=== PATIENT | male | born 1955 | race Caucasian/White ===

== ENCOUNTER 2020-10-08 23:58 | Inpatient (IN) | payer MEDICARE, BC ==
[2020-10-09 02:15] LABS: #Lymphocytes 1.4 thou/uL (1.20-3.40); #Monocytes 1.6 thou/uL (0.11-0.59); #Neutrophils 14.9 thou/uL (1.40-6.50); %Basophils 0.2 % (0.0-1.0); %Eosinophils 0.2 % (0.0-10.0); %Monocytes 8.7 % (0.0-10.0); %Neutrophils 82.9 % (42.0-75.0); Hemoglobin 14.9 g/dL (14.0-18.0); Mean Corpuscular HGB CONC 34.6 g/dL (32.0-36.0); Mean Corpuscular Hemoglobin 29.9 pg (27.0-31.0); Mean Corpuscular Volume 86.5 fL (78.0-98.0); Mean Platelet Volume 7.4 fL (7.4-10.4); Platelet Count 206 thou/uL (130-400); RBC Distribution Width 12.3 % (11.5-14.5); Red Blood Cell (RBC) Count 4.96 mill/uL (4.70-6.10); White Blood Cell (WBC) Count 17.9 thou/uL (4.8-10.8)
[2020-10-09 02:22] LABS: PTT 27.9 sec (22.9-36.1)
[2020-10-09 02:26] LABS: INR-International Normal Ratio 1.1; Prothrombin Time 14.3 sec (12.0-14.7)
[2020-10-09 02:36] LABS: ALT (SGPT) 38 U/L (8-55); AST (SGOT) 28 U/L (5-34); Albumin 4.3 g/dL (3.4-4.8); Alkaline Phosphatase 58 U/L (40-110); Anion Gap 17 mmol/L (10-20); BUN (Urea Nitrogen) 26 mg/dL (8.4-25.7); Bilirubin, Total 1.1 mg/dL (0.2-1.2); Calc. Creatinine Clearance 0 mL/min (70-130); Calcium 9.5 mg/dL (7.8-10.44); Carbon Dioxide 27 mmol/L (23-31); Chloride 102 mmol/L (98-107); Globulin 2.5 g/dL (2.4-3.5); Glucose 149 mg/dL (80-115); Potassium 3.6 mmol/L (3.5-5.1); Protein, Total 6.8 g/dL (5.8-8.1); Sodium 142 mmol/L (136-145)
[2020-10-09] MEDS ORDERED: Lorazepam 2 MG/ML VIAL ONE (03:58)
[2020-10-09] MEDS ORDERED: Dextrose 50% Abboject 50 ML SYRINGE SLOW IVP PRN (04:19)
[2020-10-09] MEDS ORDERED: Dextrose 5% in Water 1,000 ML IV PRN (04:19)
[2020-10-09] MEDS ORDERED: hydrALAZINE 20 MG/ML VIAL SLOW IVP PRN (04:19)
[2020-10-09] MEDS ORDERED: Ibuprofen 600 MG TAB PO PRN (04:24)
[2020-10-09] MEDS ORDERED: Morphine 4 MG/ML VIAL SLOW IVP ONE (05:00)
[2020-10-09] MEDS ORDERED: Morphine 4 MG/ML VIAL ONE (06:17)
[2020-10-09 06:29] LABS: #Lymphocytes 1.3 thou/uL (1.20-3.40); #Monocytes 1.8 thou/uL (0.11-0.59); #Neutrophils 14.9 thou/uL (1.40-6.50); %Basophils 0.1 % (0.0-1.0); %Eosinophils 0.2 % (0.0-10.0); %Monocytes 10.1 % (0.0-10.0); %Neutrophils 82.7 % (42.0-75.0); Hemoglobin 14.4 g/dL (14.0-18.0); Mean Corpuscular HGB CONC 33.8 g/dL (32.0-36.0); Mean Corpuscular Hemoglobin 29.1 pg (27.0-31.0); Mean Corpuscular Volume 86.2 fL (78.0-98.0); Mean Platelet Volume 7.8 fL (7.4-10.4); Platelet Count 205 thou/uL (130-400); RBC Distribution Width 12.4 % (11.5-14.5); Red Blood Cell (RBC) Count 4.94 mill/uL (4.70-6.10)
--- NOTE | 2020-10-09 06:48 | HP ---
CHIEF COMPLAINT: Right hip and left elbow pain. SUBJECTIVE: Mr. Roberts is a 65-year-old gentleman with a past medical history of hypertension, who was brought into the emergency department after slipping outside his house onto the concrete when his feet went out under him when he was trying to fix a pipe. After the patient fell, he crawled in his truck to call for help. The patient states that he has pain with any movement of the right leg and right elbow. The patient did not try to take anything for the pain. He came straight to the emergency department. The patient denies loss of consciousness, hitting his head, nausea, or vomiting. REVIEW OF SYSTEMS: Negative except for what was mentioned above in the HPI. PAST MEDICAL HISTORY: Hypertension. PAST SURGICAL HISTORY: No surgical history. SOCIAL HISTORY: Lives at home. Drinks alcohol on occasion. Denies smoking or illicit drug use. ALLERGIES: NO KNOWN ALLERGIES. MEDICATIONS: Metoprolol PHYSICAL EXAMINATION: VITAL SIGNS: O2 saturation 95% on room air, blood pressure 134/72, heart rate 84, and respiratory rate 20. GENERAL: The patient is lying flat down on the stretcher on his back, in no acute distress. Speaking full sentences. HEENT: The patient's head is normocephalic, atraumatic. Pupils equal and reactive to light bilaterally. Extraocular movements intact. NECK: Nontender. No cervical tenderness or step-off deformities. Trachea midline. CARDIAC: Regular rate and rhythm. LUNGS: Diminished breath sounds, right side. No wheezes, crackles, or rales. The patient is speaking full sentences. No accessory muscle use. ABDOMEN: Abdomen is soft, nontender. No suprapubic tenderness. No flank ecchymosis. No CVA tenderness. No peritonitis. MSK: Right elbow edema. No ecchymosis. Sensation intact in upper and lower extremities. Strength +5 in bilateral upper extremities. Right lower extremities, pain with dorsiflexion of the right foot that radiates to the right hip. No gross deformity noted on physical exam of the right hip. GENITOURINARY: No bloody urethral meatus. LABORATORY DATA: Sodium 142, potassium 3.6, chloride 102, carbon dioxide 27, BUN 26, creatinine 1.42, glucose 149, calcium 9.5. White blood cell count 17.9, hemoglobin 14.9, hematocrit 42.9, platelets 206. IMAGING: Chest x-ray shows right pneumothorax. Right Elbow displaced olecranon fx CT of abdomen and pelvis with IV contrast; 1: impression, acute displaced fracture is seen in the right iliac crest extending into the right ilium and into the right anterior acetabular, 2: [id number] right-sided pelvic hemorrhage noted with bladder contusion. No evidence of bladder rupture. 3: Moderate amount of right-sided intramuscular hemorrhage seen at the right iliac muscle. CT of chest without IV contrast; impression, 1: moderate right anterior pneumothorax involving approximately 30% to 40% of lung volume. 2: Acute fracture is seen in the right lateral fifth through seventhrib. ASSESSMENT: 1. Slip and fall. 2. Displaced right olecranon fracture. 3. Acute displaced fracture, right iliac crest, extending into the right ilium and right anterior acetabular. 4. Bladder contusion. 5. Right anterior pneumothorax. 6. Rib fractures, right lateral fifth through seventh. 7. Leukocytosis, 17.9. 8. Acute kidney injury. BUN and creatinine of 26 and 1.42. 9.Pmhx of hypertension PLAN: A 65-year-old male with status post slip and fall with multiple injuries. Case was discussed with Dr. Perez, take the patient to the OR tomorrow displaced olecranon and right hip fracture. -Right pneumothorax, place chest tube for surgery. - Pain control, Rib fracture pain protocol. - Leukocytosis most likely secondary to multiple injuries. No antibiotics. Follow up on UA and monitor fever curve. - Bladder contusion- Insert Stoddard if hematuria cystogram - SAMANTHA start IV LR 125ml/hr -Hypertension restart home medication - The patient will be started on mechanical DVT prophylaxis, pulmonary toilet, and GI prophylaxis. This case will be discussed later on with Dr. Ragland after this dictation. Job ID: [id number] [facility]
[2020-10-09] MEDS ORDERED: Lidocaine 1% (PF) 30 ML VIAL ONE (07:19)
[2020-10-09] MEDS ORDERED: Fentanyl 100 MCG/2 ML VIAL ONE (07:19)
--- NOTE | 2020-10-09 08:37 | RAD ---
XR Hip Rt 2-3 View History: Pain Comparison: None. Findings: Right anterior column acetabular fracture extending into the iliac wing. The right femoral head and neck are intact. Possible radiopaque debris within the inferior margin right hip joint. Impression: Right anterior column acetabular fracture extending into the internal iliac wing. Femoral head and neck are intact.
--- NOTE | 2020-10-09 09:50 | CT ---
PRELIMINARY REPORT/[facility]/EMERGENCY AFTER HOURS PROCEDURE: Receipt of this report by the clinical staff was confirmed with ANISH WITT MD by Zachary Armstrong se on Oct 09, 2020 03:51:00 VENDING MACHINE COLLECTOR.Addendum electronically signed by Cristina Armstrong on October 09 3:52:19 AM VENDING MACHINE COLLECTOR EXAM: CT Chest Without Intravenous Contrast. CLINICAL HISTORY: M65, went to turn water off outside house and slipped and fell on ice. landed on [facility] elbow and right hip area, complaining of pain with movement. TECHNIQUE: Axial computed tomography images of the chest without intravenous contrast. COMPARISON: None provided. FINDINGS: LUNGS: Posterior subsegmental atelectasis seen in the right lower lobe. PLEURAL SPACES: Moderate right anterior pneumothorax noted involving approximately 30-40% of the lung volume. HEART AND MEDIASTINUM: No cardiomegaly. No significant pericardial effusion. LYMPH NODES: No lymphadenopathy. CHEST WALL AND UPPER ABDOMEN: The upper abdominal solid organs are unremarkable. The chest wall is un remarkable. BONES: Acute fracture seen in the right lateral fifth through seventh ribs. IMPRESSION: Moderate right anterior pneumothorax noted involving approximately 30-40% of the lung vol ume. Acute fractures seen on the right lateral fifth through seventh ribs. ELECTRONICALLY SIGNED BY: Lolis Lovett MD Oct 09, 2020 3:46:40 AM VENDING MACHINE COLLECTOR FINAL REPORT EMERGENT AFTER HOURS CT OF CHEST PERFORMED WITHOUT CONTRAST ENHANCEMENT: HISTORY: Fall with right-sided pain. FINDINGS: A moderate right-sided pneumothorax of 30-40% is noted. There is subsegmental atelectasis in the rig ht base. Right 5th through 7th more lateral rib fractures are present. No left-sided fractures. Th e left lung is clear other than some minimal subsegmental atelectasis. Thoracic aorta is normal in caliber. No mediastinal hematoma. IMPRESSION: 1. Right 5th through 7th rib fractures associated with a moderate-size right-sided pneumothorax. 2. No vertebral body compression injuries. 3. This report is in agreement with the temporary report issued by [facility]. POS: [facility] [place]
--- NOTE | 2020-10-09 09:52 | CT ---
PRELIMINARY REPORT/[facility]/EMERGENCY AFTER HOURS PROCEDURE: EXAM: CT Abdomen and Pelvis with Intravenous Contrast CLINICAL HISTORY: M65, went to turn water off outside house and slipped and fell on ice. landed on ri ght elbow and right hip area, complaining of pain with movement. TECHNIQUE: Axial computed tomography images of the abdomen and pelvis with intravenous contrast. CONTRAST: With; ISOVUE 370,80mL COMPARISON: CT pelvic exam of 10/09/20. FINDINGS: Liver, gallbladder, spleen, adrenal glands, pancreas unremarkable. No evidence for hydronep hrosis in the kidneys. No evidence for bowel obstruction. No significant bowel wall thickening visua lized. Acute displaced fractures seen of the right iliac crest extending into the right ilium and into the r ight anterior acetabulum. Small to moderate right-sided pelvic hemorrhage noted with bladder contusio n. No evidence for bladder rupture. Moderate amount of right-sided intramuscular hemorrhage seen in the right iliacus muscle IMPRESSION: Acute displaced fractures seen of the right iliac crest extending into the right ilium an d into the right anterior acetabulum. Small to moderate right-sided pelvic hemorrhage noted with bladder contusion. No evidence for bladde r rupture. Moderate amount of right-sided intramuscular hemorrhage seen in the right iliacus muscle. ELECTRONICALLY SIGNED BY: Lolis Lovett MD Oct 09, 2020 3:48:46 AM UPHOLSTERY REPAIRER FINAL REPORT CT ABDOMEN AND PELVIS PERFORMED WITH CONTRAST ENHANCEMENT: HISTORY: Patient slipped on ice, fell, and has pain in right side. FINDINGS: There is moderate right-sided pneumothorax. This is associated with right-sided 5th, 6th, and 7th ri b fractures. Some subcutaneous emphysema is seen and there are atelectatic changes within the right lung base. The left lung shows no signs of pneumothorax. Liver shows an element of fatty change. The spleen, pancreas, and gallbladder regions all appear unr emarkable. Right and left adrenal glands and right and left kidneys are normal in size. No free fluid is seen w ithin the abdomen. CT OF PELVIS PERFORMED WITH CONTRAST ENHANCEMENT: As previously described on the CT pelvis report, a right iliac fracture extending through the body of the iliac crest into the superior and central aspect of the acetabulum with distraction is noted. E xtraperitoneal blood is seen along the right side of the pelvis and some blood tracking retroperitone al in the right pericolic gutter region. IMPRESSION: 1. Large right-sided pneumothorax associated with right 5th, 6th, and 7th rib fractures. 2. No evidence for solid organ injury. 3. Right iliac crest fracture extending into the right acetabulum has been previously described with moderate hemorrhage in the right iliacus muscle and evidence of extraperitoneal blood in the pelvis and retroperitoneal hemorrhage. 4. This report is in agreement with the temporary report issued by [facility]. POS: [facility] [place]
--- NOTE | 2020-10-09 09:53 | CT ---
PRELIMINARY REPORT/[facility]/EMERGENCY AFTER HOURS PROCEDURE: EXAM: CT Pelvis Without Intravenous Contrast. CLINICAL HISTORY: M65, went to turn water off outside house and slipped and fell on ice. [facility] and right hip area, complaining of pain with movement. TECHNIQUE: Axial computed tomography images of the pelvis without intravenous contrast. DLP equals [address] is 49.49. CONTRAST: None. COMPARISON: None provided. FINDINGS: BONES: Acute displaced fractures seen of the right iliac crest extending into the right ilium and int o the right anterior acetabulum. No evidence for dislocation. SOFT TISSUES: Small to moderate right-sided pelvic hemorrhage noted with bladder contusion. No evide nce for bladder rupture. Moderate amount of right-sided intramuscular hemorrhage seen in the right ia cus muscle IMPRESSION: Acute displaced fractures seen of the right iliac crest extending into the right ilium an d into the right anterior acetabulum. Small to moderate right-sided pelvic hemorrhage noted with bladder contusion. No evidence for bladde r rupture. Moderate amount of right-sided intramuscular hemorrhage seen in the right iliacus muscle ELECTRONICALLY SIGNED BY: Lolis Lovett MD Oct 09, 2020 1:21:31 AM SOFTWARE LICENSING EXECUTIVE FINAL REPORT CT OF PELVIS PERFORMED WITHOUT CONTRAST ENHANCEMENT: HISTORY: Patient slipped and fell on ice. FINDINGS: There is a displaced fracture of the right iliac crest. The fracture line extends in a somewhat obli que fashion into the superior and central aspect of the acetabulum. The more anterior component is r otated in a slightly counterclockwise fashion. This causes widening along the central aspect of the right side of the acetabulum where there is a gap of approximately 2 cm. This was associated with so me prominent extraperitoneal blood within the right side of the pelvis displacing the bladder to the left. There is also extensive hemorrhage within the right iliacus muscle and some minimal retroperit juan blood tracking into the right paracolic gutter region. The SI joint is normal in appearance. The right inferior pubic ramus is intact. A fracture line goi ng through the central portion of the acetabulum extends into the base of the right superior pubic ra mi. No posterior acetabular fracture is seen. IMPRESSION: 1. Iliac fracture which is an obliquely oriented fracture through the body of the right iliac crest extending into the superior and central aspect of the acetabulum. The fracture is displaced and the gap at the level of the central acetabulum is almost 2 cm. Changes are associated with some moderate intramuscular hemorrhage within the right iliacus muscle with some retroperitoneal blood extending i nto the right paracolic gutter and prominent extraperitoneal blood along the right side of the pelvis displacing the bladder to the left. 2. This report is in agreement with the temporary report issued by [facility]. POS: [facility] [place], [place]
--- NOTE | 2020-10-09 09:56 | RAD ---
RIGHT ELBOW 4 VIEWS: HISTORY: Fell on elbow. FINDINGS: There is a displaced olecranon fracture. The fracture is distracted by approximately 17 mm. No radi al head fracture is noted. IMPRESSION: Distracted olecranon fracture. POS: [facility]
--- NOTE | 2020-10-09 10:02 | RAD ---
PORTABLE CHEST: HISTORY: Pneumothorax evaluation. The patient is status post fall. FINDINGS: Large right-sided pneumothorax is again demonstrated as was noted on the previous CT. Right-sided ri b fractures are more difficult to visualize on this study. There is some minimal subcutaneous emphys minor. IMPRESSION: Moderately large right-sided pneumothorax with right lower lobe atelectasis and right-sided rib fract ures. POS: [facility]
[2020-10-09] MEDS: Acetaminophen 325 MG TAB PO SCH ×4 (10:15→23:23)
[2020-10-09] MEDS: traMADol HCl 50 MG TAB PO SCH ×4 (10:15→23:22)
[2020-10-09] MEDS: Famotidine/PF 20 mg/2ml Vial SLOW IVP SCH ×2 (10:18→20:45)
[2020-10-09] MEDS: Gabapentin 100 MG CAP PO SCH (10:19)
[2020-10-09] MEDS: Lactated Ringer's 1,000 ML IV SCH ×3 (10:19→20:46)
--- NOTE | 2020-10-09 10:48 | RAD ---
PORTABLE CHEST: HISTORY: Chest tube placement. FINDINGS: A right-sided chest tube has been placed. The tip is in the right lung apex. The right pneumothorax has resolved. Atelectasis in the right lung base is still present. IMPRESSION: Placement of a right chest tube with resolution of the right-sided pneumothorax still with persistent atelectatic change in the right base. POS: [facility]
[2020-10-09 11:04] VITALS: BMI 33.7
[2020-10-09] MEDS ORDERED: Iopamidol-370 76% 500 ML 1 ML ONE (11:29)
--- NOTE | 2020-10-09 11:52 | CON ---
DATE OF CONSULTATION: 10/09/2020 CHIEF COMPLAINT: Right hip pain. HISTORY OF PRESENT ILLNESS: Mr. Roberts is a 65-year-old male, who has fallen on the ice. He fell yesterday evening. He had multiple injuries. He has sustained an injury to his chest with rib fractures and pneumothorax. He has just had a chest tube placed. He also has a right olecranon fracture. He has a right acetabulum anterior column fracture as well. He was going out trying to fix a frozen pipe when his feet slipped on frozen ice on concrete. He was taken to the emergency department by EMS. He has been evaluated and is currently stable. REVIEW OF SYSTEMS: Positive for pain in the hip as well as the elbow. Otherwise, negative 10-point review of systems. PAST MEDICAL HISTORY: Hypertension. PAST SURGICAL HISTORY: Negative. SOCIAL HISTORY: The patient lives independently. Denies tobacco, alcohol, or drug use. ALLERGIES: NO KNOWN DRUG ALLERGIES. MEDICATIONS: Unknown. IMAGING DATA: Pelvis CT scan as well as hip x-rays are reviewed. These demonstrate an anterior column acetabulum fracture with extension through the dome of the acetabulum with approximately 10 mm of diastasis. This extends more proximally into the iliac wing as well. There is displacement throughout. There is hematoma. Right elbow x-rays demonstrated displaced olecranon fracture. This is acute as well. PHYSICAL EXAMINATION: VITAL SIGNS: Stable. The patient is afebrile. GENERAL: He is alert, oriented, lying supine. No apparent distress. HEENT: Normocephalic, atraumatic. RESPIRATORY: Breathing comfortably. ABDOMEN: Soft, nontender, and nondistended. He is somewhat obese. CARDIOVASCULAR: Pulses are palpable and regular peripherally. MUSCULOSKELETAL: The patient's right lower extremity has pain with hip motion. He is neurovascularly intact in the feet and ankles. He has palpable pulses. Sensation is intact distally. His left upper extremity and left lower extremity are atraumatic. The right upper extremity is splinted. He has intact sensation and able to move the fingers well. He has a chest tube in the right chest wall. IMPRESSION: 1. Right anterior column acetabulum fracture with displacement. 2. Right displaced olecranon fracture. 3. Multiple rib fractures, status post chest tube for small pneumothorax. PLAN: At this point, the patient will be stabilized today. He will have close monitoring. He will have pain control. He will continue to work on his incentive spirometer and other respiratory conditioning. He will have DVT prophylaxis. I would like to take him to the operating room tomorrow morning for his elbow and acetabulum fracture. We will plan for open reduction and internal fixation of all structures. He will need an anterior intrapelvic approach for the acetabulum to restore the congruity. Goal is to preserve his hip joint. Risks have been reviewed with him. These include infection, nerve or vascular injury, DVT, PE, posttraumatic arthritis, nonunion, hardware failure, and others. He wants to proceed with surgery. He will be n.p.o. at midnight. He will have antibiotics on-call to the operating room. Job ID: [id number]
[2020-10-09] MEDS: traMADol HCl 50 MG TAB PO PRN ×2 (12:20→20:44)
--- NOTE | 2020-10-09 12:48 | OP ---
DATE OF PROCEDURE: 10/09/2020 PROCEDURE: Right tube thoracostomy. INDICATION: Right pneumothorax secondary to multiple rib fractures. Consent was signed by the patient and witnessed by the RN. DESCRIPTION OF PROCEDURE: The patient was prepped and draped in usual fashion. His right arm was taken over his head, secured with a restraint. Sedation/analgesia 100 mcg of fentanyl IV push was given. Next, the skin was prepped and allowed to completely dry with 4% chlorhexidine wash, twp different pads. Sterile hand hygiene was performed. Sterile gloves, gown, mask were donned. The area was draped with sterile towels. Next, the midaxillary area was identified, 1% lidocaine, total of 12 mL. A wheal was placed under the skin and then local anesthesia down to the periosteum as well as the pleural space, was unable to get air. During the local anesthetic likely secondary to the patient's habitus since he has a large habitus, quite a bit of soft tissue. Next, a single incision was made in the midaxillary in the fourth to fifth intercostal area, linear in nature. Blunt dissection down to the pleura was made. The pleural space was entered with Angella forceps. A stein of air was noted. The track was dilated. I was then able to place a gloved finger into the pleural space. There were no adhesions noted. Next, a 28-Danish chest tube was inserted over Angella's into the pleural space. This was inserted to 15 cm at the skin. This was sutured in place with 0 nylon there. This was connected to a Pleur-Evac and suction at 20 cm water. Next, iodoform gauze was placed around the incision site as well as a bulky dressing, secured with tape. The followup chest x-ray demonstrated respect to the long and good position of the chest tube. Complications none. Blood loss none. The patient tolerated the procedure well. Job ID: [id number] [facility]
[2020-10-09 17:33] LABS: SARS-CoV-2 PCR by NAA Not Detected (NotDetected)
[2020-10-09 18:32] LABS: Bacteria/HPF None Seen HPF (None Seen); Bilirubin Negative (Negative); Blood, Urine Negative (Negative); Clarity Clear (Clear); Glucose, Urine (Dipstick) Normal (Negative); Ketone, Urine Negative (Negative); Leukocyte Negative Leu/uL (Negative); Nitrite Negative (Negative); Protein, Urine (Dipstick) 20 mg/dL (Neg-Trace); RBC/HPF 0-3 HPF (0-3); Specific Gravity, Urine 1.039 (1.002-1.036); Squamous Epithelial 0-3 HPF (0-3); Urobilinogen Normal mg/dL (Less than 2); WBC/HPF 0-3 HPF (0-3); pH, Urine 5.5 (5.0-9.0)
[2020-10-09 18:37] LABS: Urine Culture Reflex No No
[2020-10-10] MEDS: Lactated Ringer's 1,000 ML IV SCH ×3 (02:11→21:08)
[2020-10-10] MEDS: Morphine 2 MG/ML VIAL SLOW IVP PRN ×4 (05:08→23:47)
[2020-10-10] MEDS: traMADol HCl 50 MG TAB PO SCH ×4 (05:11→23:43)
[2020-10-10] MEDS: Acetaminophen 325 MG TAB PO SCH ×4 (05:11→23:47)
[2020-10-10 05:43] LABS: #Eosinphils 0.1 thou/uL (0.0-0.7); #Lymphocytes 2.7 thou/uL (1.20-3.40); #Monocytes 1.2 thou/uL (0.11-0.59); #Neutrophils 5.6 thou/uL (1.40-6.50); %Basophils 0.5 % (0.0-1.0); %Eosinophils 0.8 % (0.0-10.0); %Lymphocytes 27.9 % (21.0-51.0); %Monocytes 12.7 % (0.0-10.0); Mean Corpuscular HGB CONC 33.8 g/dL (32.0-36.0); Mean Corpuscular Hemoglobin 29.7 pg (27.0-31.0); Mean Corpuscular Volume 87.7 fL (78.0-98.0); Mean Platelet Volume 7.5 fL (7.4-10.4); Platelet Count 151 thou/uL (130-400); RBC Distribution Width 12.5 % (11.5-14.5); Red Blood Cell (RBC) Count 4.05 mill/uL (4.70-6.10); White Blood Cell (WBC) Count 9.7 thou/uL (4.8-10.8)
[2020-10-10] MEDS ORDERED: Fentanyl 100 MCG/2 ML VIAL ONE ×3 (07:10→15:31)
[2020-10-10] MEDS: Metoprolol Tartrate 25 MG TAB PO SCH (07:18)
[2020-10-10] MEDS: Famotidine/PF 20 mg/2ml Vial SLOW IVP SCH ×2 (07:26→21:06)
[2020-10-10] MEDS: Cholecalciferol 1,000 UNITS (25 MCG) TAB PO SCH (07:26)
[2020-10-10] MEDS: Ascorbic Acid 500 mg Chewable Tablet PO SCH (07:26)
[2020-10-10] MEDS: Amlodipine 10 MG TAB PO SCH (07:26)
[2020-10-10] MEDS: Zinc Sulfate 220 MG CAP PO SCH (07:27)
[2020-10-10] MEDS: Multivitamin W/ Minerals 1 TAB PO SCH (07:27)
[2020-10-10] MEDS: Gabapentin 100 MG CAP PO SCH (07:27)
[2020-10-10] MEDS ORDERED: CEFAZOLIN 2 GM in Premix Bag 1 BAG IVPB SCH ×2 (08:00→14:00)
[2020-10-10] MEDS ORDERED: Midazolam HCl 2 mg/2 ml Vial ONE (08:43)
[2020-10-10] MEDS ORDERED: PROPOFOL 200 MG/20 ML VIAL ONE (09:08)
[2020-10-10] MEDS ORDERED: Glycopyrrolate 0.2 MG/ML 5 ML SYRINGE ONE (09:08)
[2020-10-10] MEDS ORDERED: Lidocaine 1% PF 5 ML VIAL ONE (09:08)
[2020-10-10] MEDS ORDERED: PHENYLEPHRINE-NS 100 MCG/ML 10 ML SYRINGE ONE (09:08)
[2020-10-10] MEDS ORDERED: Rocuronium Bromide 10 MG/ML (10ML VIAL) ONE (09:08)
[2020-10-10] MEDS ORDERED: Ondansetron PF 4 MG/2 ML Vial ONE (09:08)
[2020-10-10] MEDS ORDERED: Phenylephrine 10 MG/ML VIAL ONE (10:15)
[2020-10-10] MEDS ORDERED: Albumin 5% 500 ML ONE (10:17)
--- NOTE | 2020-10-10 13:58 | RAD ---
LEFT ELBOW TWO VIEWS: History: Intraoperative film. FINDINGS: This shows fixation of the olecranon fracture with plate and screws. IMPRESSION: Open reduction internal fixation of the olecranon fracture. POS: [facility]
--- NOTE | 2020-10-10 14:48 | OP ---
DATE OF PROCEDURE: 10/10/2020 PROCEDURES PERFORMED: 1. Open reduction and internal fixation of right anterior column acetabulum fracture. 2. Open reduction and internal fixation of right displaced olecranon fracture. PREOPERATIVE DIAGNOSES: Right displaced anterior column acetabulum fracture and right olecranon fracture. POSTOPERATIVE DIAGNOSES: Right displaced anterior column acetabulum fracture and right olecranon fracture. COMPLICATIONS: None. ESTIMATED BLOOD LOSS: 400 mL. CO-SURGEON: Dr. Roberto Lindsey. IMPLANTS: Synthes pelvic reconstruction plate with multiple small fragment nonlocking screws was utilized as well as olecranon plate with locking and nonlocking screws from [employer]. INDICATIONS: Mr. Roberts is a 65-year-old male, who has fallen and fractured his right elbow as well as his right acetabulum. He has been indicated for open reduction and internal fixation of the above structures to restore anatomic alignment and promote healing and prevent complications of his injuries. He is at risk for wound infection, nerve or vascular injury, DVT, PE, posttraumatic arthritis, elbow and hip stiffness among others. DESCRIPTION OF PROCEDURE: Mr. Roberts was identified in the preoperative holding area. His correct extremity was marked. He was carried to the operating room. He was positioned supine. General anesthesia was induced. A multidisciplinary time-out was performed. He was given intravenous antibiotics. At this point, we proceeded to prep and drape the patient's anterior abdomen as well as the right lower extremity. He was placed on the fracture table with all bony prominences well padded. At this point, we made an anterior incision for an ilioinguinal approach. We made a long incision extending from the pubic symphysis region to the right side over the ASIS and along the iliac crest. We dissected down carefully through the subcutaneous tissues to the fascia level. We obtained hemostasis as we went. We began development of the ilioinguinal windows at this point. We started with the lateral window. We divided the external fascia from its insertion on the iliac crest. This allowed us to follow the inner table of the ilium. We cleared this using a lap sponge and a Pat elevator. We took our time carefully elevating the iliacus muscle and obtaining hemostasis. We worked down to the pelvic brim. The patient's iliac wing fracture was visualized and was found to be significantly displaced. We traced this fracture down to the quadrilateral plate and the acetabulum as well. Once we had a lateral window adequately exposed, we moved to the middle window. We divided the rectus abdominus musculature. We then worked more deeply and palpated the pubic symphysis. We protected the bladder with a sponge. At this point, we reflected the right-sided rectus insertion partially. We then followed the pubic ramus laterally. We did ligate a vessel, which was possibly the lincoln mortis vessel. This allowed us to continue our exposure. We fully developed the middle window of the approach. We identified the iliopectineal fascia after opening the external ilioinguinal canal. We took great care to protect the lateral femoral cutaneous nerve. At this point, we again identified the iliopectineal fascia and retracted the psoas muscle with the femoral nerve as well as the femoral vessels. We divided the iliopectineal fascia down to the bony level opening the pelvis. This connected all of our windows and allow full exposure of the fracture. Using windows through the lateral and the middle exposures, we were able to reduce the fracture using reduction clamps. We placed an offset clamp across the quadrilateral plate compressing the fracture. We had an anatomic reduction. We checked this with intraoperative x-rays. Next, we placed 3 screws in the table of the ilium across the iliac wing fracture. It stabilized the wing fracture component well. Finally, we placed a pelvic brim plate bypassing this from the pubic symphysis along pelvic brim. We placed multiple screws in the pelvic brim and along the pubic rami. This completed fixation. We took final images. We thoroughly irrigated with copious lavage. Again, we checked our reduction, which was anatomic. The pelvis was very stable. At this point, we prepped and draped the right upper extremity. We proceeded to perform a posterior approach to the olecranon. We dissected down through the subcutaneous tissues to the olecranon fracture. We cleared the bony edges. We thoroughly irrigated with copious lavage. We then placed a reduction clamp across the fracture. We held our reduction appropriately and took x-ray images. Next, we applied our [employer] olecranon plate. Multiple screws were placed proximally and distally to the fracture, locking the plate to the bone. There were no complications. We took final images. We thoroughly irrigated with copious lavage. At this point, we closed in layers. A sterile dressing was applied. The patient was taken to the recovery room in good condition. The mailroom assistant surgeon was responsible for positioning the patient, preparing the injured extremity, applying the tourniquet, and assisting in preparation for surgery. The mailroom assistant was instrumental in reducing the injured limb by applying traction and reduction maneuvers as well as holding retractors and reduction tools. The mailroom assistant also was instrumental in assisting in exposure throughout the operation using appropriate retractors. The mailroom assistant participated in closure of the operative site as well as dressing application and splint application. Job ID: [id number] MTDD
[2020-10-10] MEDS: traMADol HCl 50 MG TAB PO PRN (17:18)
[2020-10-10] MEDS: CEFAZOLIN 2 GM in Premix Bag 1 BAG IVPB SCH (17:19)
--- NOTE | 2020-10-10 17:22 | RAD ---
CHEST ONE VIEW: History: Evaluate pneumothorax Comparison: 10-09-2020 FINDINGS: Heart size appears borderline. Right chest tube remains in place. Right lung appears fairly well expa nded. Questionable minimal loculated pneumothorax along the right heart border. IMPRESSION: No evidence of a definitive pneumothorax, perhaps some minimal loculated pneumothorax in the right ca rdiophrenic angle. POS: JAQUAN
--- NOTE | 2020-10-10 18:20 | PRG ---
DATE OF SERVICE: 10/10/2020 SUBJECTIVE: Armando is a 65-year-old male, hospital day #1, status post ground level fall with multiple traumatic injuries including multiple right-sided rib fractures and right pneumothorax, right elbow fracture, right acetabular, and pelvic fracture. He is now status post ORIF. I have seen him just postoperatively. He does have some postoperative pain. It is slightly improving and just got some pain medicine. We are going to give a dose of Toradol now. Unfortunately, his chest x-ray was not done early this morning, because he went down to the OR and just completed now. Pneumothorax shows to be generally resolved. We will place the chest x-ray to water seal at this time. Otherwise, no other specific complaints. Remains hemodynamically stable. He is on 2 L of oxygen postoperatively. OBJECTIVE: VITAL SIGNS: Temperature is 97.2, blood pressure 112/75, heart rate is 88, breathing 14 times per minute, 94% on 2 L nasal cannula. GENERAL: A 65-year-old male with some acute traumatic pain. HEENT: Normocephalic, atraumatic. RESPIRATORY: Equal rise and fall. There is a right-sided 28-Bengali chest tube. No air leak is noted when he is on wall suction. Clear lung sounds. CHEST: He has strong pulses. Regular rhythm. ABDOMEN: Soft. PELVIS: Stable. Does have incisions noted. EXTREMITIES: He has a right upper extremity bandaged. He has good sensation. He has good sensation in all four distal extremities. NEURO : Alert and oriented to person, place, time, and event. PSYCH: Normal mood and affect. SKIN: Warm and dry. LABORATORY DATA: From this morning, white blood cell count 9.7, platelets are 151. Hemoglobin and hematocrit are 12.0 and 35.6 respectively. Chemistry; sodium is 142, potassium 3.6, chloride is 102, CO2 is 27, BUN is 26, creatinine is 1.42, glucose is 149. AST and ALT 28 and 38 respectively. COVID was negative. Chest x-ray demonstrates re-expansion of the lung. He has chest tube in place. No definite pneumothorax is appreciated. ASSESSMENT AND PLAN: 1. Ground level fall on the ice. 2. Displaced right olecranon fracture, status post ORIF. 3. Acute displaced fracture, right iliac crest extending into right ilium and right anterior acetabular region, status post ORIF. 4. Bladder contusion with clear urine now. 5. Right pneumothorax, status post tube thoracostomy. 6. Right rib fractures 5 through 7. 7. SAMANTHA versus CKD. 8. History of hypertension. PLAN: 1. We will continue pain regimen. 2. We will reduce the dose of ibuprofen given his SAMANTHA and monitor closely. 3. Repeat labs in the morning. 4. Chest tube to water seal now. We will repeat x-ray in the morning. 5. We will work with PT and OT. 6. I believe in nonweightbearing per Orthopedics for his pelvic x-ray. 7. We will leave the Stoddard catheter for tonight and re-evaluate removing this tomorrow. 8. Resume home medications for antihypertensives. 9. Updated the patient and the patient's family at the bedside. Hope to start DVT prophylaxis tomorrow if the patient remains hemodynamically stable. Verbalized understanding and I have coordinated with the bedside RN. Job ID: [id number]
[2020-10-10] MEDS: Ondansetron PF 4 MG/2 ML Vial IVP PRN (18:44)
[2020-10-10] MEDS ORDERED: Ketorolac Tromethamine 30 MG/ML VIAL IVP SCH (18:45)
[2020-10-10] MEDS: Ibuprofen 600 MG TAB PO SCH (21:07)
[2020-10-10] MEDS: Simvastatin 10 MG TAB PO SCH (21:08)
[2020-10-10] MEDS: Tamsulosin HCl 0.4 MG CAP PO SCH (21:08)
[2020-10-11] MEDS: CEFAZOLIN 2 GM in Premix Bag 1 BAG IVPB SCH (02:22)
[2020-10-11] MEDS: Lactated Ringer's 1,000 ML IV SCH ×3 (02:24→21:00)
[2020-10-11] MEDS: traMADol HCl 50 MG TAB PO SCH ×4 (05:11→23:57)
[2020-10-11] MEDS: Ibuprofen 600 MG TAB PO SCH ×3 (05:12→21:00)
[2020-10-11] MEDS: Acetaminophen 325 MG TAB PO SCH ×4 (05:12→23:57)
[2020-10-11 06:25] LABS: Calcium 7.6 mg/dL (7.8-10.44); Chloride 104 mmol/L (98-107); Sodium 137 mmol/L (136-145)
[2020-10-11 06:26] LABS: Glucose 98 mg/dL (80-115)
[2020-10-11 06:27] LABS: Anion Gap 12 mmol/L (10-20); Carbon Dioxide 25 mmol/L (23-31)
[2020-10-11 06:29] LABS: Calc. Creatinine Clearance 140 mL/min (70-130); Phosphorus 2.9 mg/dL (2.3-4.7)
[2020-10-11 06:30] LABS: BUN (Urea Nitrogen) 26 mg/dL (8.4-25.7)
[2020-10-11 07:35] LABS: #Eosinphils 0.1 thou/uL (0.0-0.7); #Lymphocytes 1.7 thou/uL (1.20-3.40); #Monocytes 1.1 thou/uL (0.11-0.59); #Neutrophils 6.7 thou/uL (1.40-6.50); %Basophils 0.3 % (0.0-1.0); %Eosinophils 0.5 % (0.0-10.0); %Lymphocytes 17.3 % (21.0-51.0); %Monocytes 11.6 % (0.0-10.0); %Neutrophils 70.2 % (42.0-75.0); Hemoglobin 8.7 g/dL (14.0-18.0); Mean Corpuscular HGB CONC 34.6 g/dL (32.0-36.0); Mean Corpuscular Hemoglobin 30.9 pg (27.0-31.0); Mean Corpuscular Volume 89.3 fL (78.0-98.0); Mean Platelet Volume 7.8 fL (7.4-10.4); Platelet Count 119 thou/uL (130-400); RBC Distribution Width 12.2 % (11.5-14.5); Red Blood Cell (RBC) Count 2.82 mill/uL (4.70-6.10); White Blood Cell (WBC) Count 9.5 thou/uL (4.8-10.8)
--- NOTE | 2020-10-11 07:54 | RAD ---
XR Chest 1 View Portable History: Respiratory failure Comparison: Radiograph prior day Findings: Lungs are hypoinflated. Right thoracostomy tube is in a similar location with tip near the right lung apex. Trace basilar pneumothorax. No evidence for pneumonia. Right-sided rib fractures are without further displacement. Impression: Trace basilar component of the right pneumothorax.
[2020-10-11] MEDS: Cholecalciferol 1,000 UNITS (25 MCG) TAB PO SCH (09:13)
[2020-10-11] MEDS: Ascorbic Acid 500 mg Chewable Tablet PO SCH (09:14)
[2020-10-11] MEDS: Metoprolol Tartrate 25 MG TAB PO SCH (09:15)
[2020-10-11] MEDS: Gabapentin 100 MG CAP PO SCH (09:15)
[2020-10-11] MEDS: Famotidine/PF 20 mg/2ml Vial SLOW IVP SCH ×2 (09:15→20:59)
[2020-10-11] MEDS: Zinc Sulfate 220 MG CAP PO SCH (09:16)
[2020-10-11] MEDS: Multivitamin W/ Minerals 1 TAB PO SCH (09:16)
[2020-10-11] MEDS: Amlodipine 10 MG TAB PO SCH (09:16)
[2020-10-11] MEDS: traMADol HCl 50 MG TAB PO PRN (10:47)
--- NOTE | 2020-10-11 14:30 | PDOC.GSPN ---
Surgery Progress Note: Subj - Subjective Patient reports: no new complaints, feels better, pain well controlled, no bowel movement Narrative: This is a 65 year old male on hospital day 2 after a mechanical fall while walking on the ice. He sustained multiple rib fractures, right pneumothorax, right elbow fracture , right acetabular and pelvic fracture. He is post op day 1 after ORIF. This afternoon he states he is doing well with the pain regimen and is overall pleased with his progress. He worked with OT and PT and said both sessions went smoothly. He still has not had a bowel movement. He denies any new pain, nausea, vomiting or cough. Surgery Progress Note: Obj - Vital signs Vital signs: Vital Signs - Most Recent Temp Pulse Resp BP Pulse Ox 98.8 F 89 16 116/53 L 95 10/11/20 11:28 10/11/20 11:28 10/11/20 11:28 10/11/20 11:28 10/11/20 11:28 - Physical Exam General: no distress Cardiovascular: regular rate and rhythm Respiratory: breath sounds present Abdomen: soft, non tender, nondistended, positive bowel sounds Wound: dressing clean,dry,intact Surgery Progress Note: Results - Labs Result Diagrams: 10/12/20 05:52 10/12/20 05:52 Lab results: Laboratory Results - last 12 hr 10/11/20 10/11/20 05:30 06:46 WBC 9.5 RBC 2.82 L Hgb 8.7 L Hct 25.2 L MCV 89.3 MCH 30.9 MCHC 34.6 RDW 12.2 Plt Count 119 L MPV 7.8 Neutrophils % 70.2 Neutrophils % (Manual) Not Reportable Lymphocytes % 17.3 L Monocytes % 11.6 H Eosinophils % 0.5 Basophils % 0.3 Neutrophils # 6.7 H Lymphocytes # 1.7 Monocytes # 1.1 H Eosinophils # 0.1 Basophils # 0.0 Sodium 137 Potassium 4.0 Chloride 104 Carbon Dioxide 25 Anion Gap 12 BUN 26 H Creatinine 0.89 Estimated GFR (MDRD) 85 Glucose 98 Calcium 7.6 L Phosphorus 2.9 Magnesium 2.0 Surgery Progress Note: A/P - Plan Plan: Assessment: 1. Ground level fall on ice 2. Displaced right olecranon fracture status post ORIF 3. Acute displaced fracture right iliac crest status post ORIF 4. Bladder contusion 5. Right pneumothorax 6. Right rib fractures 5-7 7. John v CKD 8. History of HTN Plan 1. Continue with current pain regimen 2. Continue working with PT and OT 3. Chest tube suction has been turned off and we will evaluate for removal tomorrow based on morning imaging 4. Continue use of incentive spirometer 5. Add stool softeners to medications Addendum - Attending - Attending Attestation Date/Time: 10/12/20 8921 I personally evaluated the patient and discussed the management with Dr. [] I agree with the History, Examination, Assessment and Plan documented above with any addition or exceptions noted below.
--- NOTE | 2020-10-11 18:28 | EKG ---
Test Reason : Blood Pressure : / mmHG Vent. Rate : 083 BPM Atrial Rate : 083 BPM P-R Int : 182 ms QRS Dur : 124 ms QT Int : 400 ms P-R-T Axes : 037 -17 -17 degrees QTc Int : 470 ms Normal sinus rhythm RSR' or QR pattern in V1 suggests right ventricular conduction delay Left ventricular hypertrophy with QRS widening Abnormal ECG No previous ECGs available Confirmed by FLYNN POPE, SDominga ([id number]) on 10/11/2020 6:27:44 PM Referred By: ALMAS Confirmed By:DR. Annie PRUETT MD
[2020-10-11] MEDS: Simvastatin 10 MG TAB PO SCH (21:00)
[2020-10-11] MEDS: Tamsulosin HCl 0.4 MG CAP PO SCH (21:00)
[2020-10-12] MEDS: Lactated Ringer's 1,000 ML IV SCH (05:56)
[2020-10-12] MEDS: traMADol HCl 50 MG TAB PO SCH ×3 (05:57→18:04)
[2020-10-12] MEDS: Acetaminophen 325 MG TAB PO SCH ×3 (05:57→18:04)
[2020-10-12] MEDS: Ibuprofen 600 MG TAB PO SCH ×2 (05:58→14:52)
[2020-10-12 06:16] LABS: #Eosinphils 0.2 thou/uL (0.0-0.7); #Lymphocytes 1.6 thou/uL (1.20-3.40); #Neutrophils 5.9 thou/uL (1.40-6.50); %Basophils 0.3 % (0.0-1.0); %Eosinophils 1.8 % (0.0-10.0); %Lymphocytes 18.8 % (21.0-51.0); %Monocytes 11.4 % (0.0-10.0); %Neutrophils 67.8 % (42.0-75.0); Hemoglobin 7.7 g/dL (14.0-18.0); Mean Corpuscular HGB CONC 33.9 g/dL (32.0-36.0); Mean Corpuscular Hemoglobin 29.9 pg (27.0-31.0); Mean Corpuscular Volume 88.2 fL (78.0-98.0); Mean Platelet Volume 7.4 fL (7.4-10.4); Platelet Count 128 thou/uL (130-400); Red Blood Cell (RBC) Count 2.58 mill/uL (4.70-6.10); White Blood Cell (WBC) Count 8.8 thou/uL (4.8-10.8)
[2020-10-12 06:32] LABS: Anion Gap 10 mmol/L (10-20); BUN (Urea Nitrogen) 20 mg/dL (8.4-25.7); Calc. Creatinine Clearance 168 mL/min (70-130); Calcium 7.8 mg/dL (7.8-10.44); Carbon Dioxide 28 mmol/L (23-31); Chloride 107 mmol/L (98-107); Glucose 98 mg/dL (80-115); Magnesium 2.1 mg/dL (1.6-2.6); Phosphorus 2.6 mg/dL (2.3-4.7); Potassium 3.8 mmol/L (3.5-5.1); Sodium 141 mmol/L (136-145)
--- NOTE | 2020-10-12 07:03 | RAD ---
RIGHT HIP TWO VIEWS: History: Intraoperative film FINDINGS: These show fixation of the iliac and acetabular fracture with plate and screws. IMPRESSION: Open reduction internal fixation of the right iliac crest and acetabular fracture. POS: OFF
--- NOTE | 2020-10-12 08:39 | RAD ---
2 view chest: [10/12/2020] Comparison:10/11/2020 HISTORY: Chest tube placement FINDINGS: Heart and mediastinal contours appear stable. There is a stable right-sided chest tube. No discrete pneumothorax. No focal consolidation or alveolar edema. No significant pleural fluid. Elevation of the right hemidiaphragm noted. IMPRESSION: Stable right chest tube.
[2020-10-12] MEDS ORDERED: Potassium Phosphate 15 MMOL in Sodium Chloride 0.9% 250 ML 250 ML IVPB SCH (09:00)
[2020-10-12] MEDS ORDERED: Senokot S 8.6-50 MG TAB PO SCH (09:45)
[2020-10-12] MEDS ORDERED: Docusate 100 MG CAP PO SCH (09:45)
[2020-10-12] MEDS: Ascorbic Acid 500 mg Chewable Tablet PO SCH (09:55)
[2020-10-12] MEDS: Amlodipine 10 MG TAB PO SCH (09:55)
[2020-10-12] MEDS: Metoprolol Tartrate 25 MG TAB PO SCH (09:55)
[2020-10-12] MEDS: Cholecalciferol 1,000 UNITS (25 MCG) TAB PO SCH (09:56)
[2020-10-12] MEDS: Multivitamin W/ Minerals 1 TAB PO SCH (09:59)
[2020-10-12] MEDS: Gabapentin 100 MG CAP PO SCH (09:59)
[2020-10-12] MEDS: Zinc Sulfate 220 MG CAP PO SCH (09:59)
[2020-10-12] MEDS ORDERED: Furosemide 40 MG/4 ML VIAL SLOW IVP SCH (11:45)
--- NOTE | 2020-10-12 13:53 | PDOC.GSPN ---
Surgery Progress Note: Subj - Subjective Patient reports: no new complaints, feels better, positive flatus, pain well con trolled, pain is less Narrative: This is a 65 year old male hospitalized after a fall on the ice where he sustained multiple right rib fractures with pneumothorax, right elbow and right hip fractures. He is now day 2 status post op ORIF on both the hip and the elbow. Today he states he is feeling better and that his pain is well controlled. He is beginning to tolerate a regular diet, however, he still has not had a bowel movement. He has been using the incentive spirometer and we encouraged him to increase the frequency of his use. We took him off the 4L nasal cannula O2 in the room as his oxygen saturation has improved. We discontinued fluids in the room and will diurese him with Furosemide, so the kruger catheter will remain in for now. He had just worked with PT 15 minutes prior to entering the room where he stood up with assistance and sat upright in the chair. He denies nausea, vomiting, shortness of breath or any new complaints. Surgery Progress Note: Obj - Vital signs Vital signs: Vital Signs - Most Recent Temp Pulse Resp BP Pulse Ox 97.4 F L 95 18 113/72 98 10/12/20 11:32 10/12/20 11:32 10/12/20 11:32 10/12/20 12:19 10/12/20 11:32 - Physical Exam General: no distress, well nourished Cardiovascular: regular rate and rhythm Respiratory: breath sounds present, other (Decreased breath sounds bilaterally in the lower lobes. Coughs when asked to take a deep breath) Abdomen: soft, non tender Wound: dressing clean,dry,intact Surgery Progress Note: Results - Labs Result Diagrams: 10/14/20 05:21 10/14/20 05:21 Lab results: Laboratory Results - last 12 hr 10/11/20 10/12/20 10/12/20 06:42 05:52 05:52 WBC 8.8 RBC 2.58 L Hgb 7.7 L Hct 22.7 L MCV 88.2 MCH 29.9 MCHC 33.9 RDW 12.0 Plt Count 128 L MPV 7.4 Neutrophils % 67.8 Lymphocytes % 18.8 L Monocytes % 11.4 H Eosinophils % 1.8 Basophils % 0.3 Neutrophils # 5.9 Lymphocytes # 1.6 Monocytes # 1.0 H Eosinophils # 0.2 Basophils # 0.0 Sodium 141 Potassium 3.8 Chloride 107 Carbon Dioxide 28 Anion Gap 10 BUN 20 Creatinine 0.74 Estimated GFR (MDRD) Greater than 90 Glucose 98 Calcium 7.8 Phosphorus 2.6 Magnesium 2.1 Blood Type A POSITIVE Antibody Screen 10/12/20 05:52 WBC RBC Hgb Hct MCV MCH MCHC RDW Plt Count MPV Neutrophils % Lymphocytes % Monocytes % Eosinophils % Basophils % Neutrophils # Lymphocytes # Monocytes # Eosinophils # Basophils # Sodium Potassium Chloride Carbon Dioxide Anion Gap BUN Creatinine Estimated GFR (MDRD) Glucose Calcium Phosphorus Magnesium Blood Type A POSITIVE Antibody Screen NEGATIVE - Radiology Interpretation Chest x-ray Additional comments: CXR read by radiologist and appears stable without evidence of pneumothorax. Lungs still remain hypoinflated. Surgery Progress Note: A/P - Plan Plan: Assessment 1. Ground level fall on ice 2. Displaced right olecranon fracture, status post ORIF 3. Acute displaced fracture, right iliac crest status post ORIF 4. Bladder contusion 5. Right pneumothorax status post thoracotomy 6. Right rib fracture 5 through 7 Plan 1. Continue current pain regimen 2. Continue use of incentive spirometer 3. Diurese with Furosemide so that we can remove the kruger catheter as soon as possible 4. Continue working with PT and OT 5. Plan to reimage chest tomorrow to potentially remove the chest tube 6. Coordinate with shelter case manager on placement with [facility] rehabilitation Addendum - Attending - Attending Attestation Date/Time: 10/14/20 9808 I personally evaluated the patient and discussed the management with Dr. [] I agree with the History, Examination, Assessment and Plan documented above with any addition or exceptions noted below.
--- NOTE | 2020-10-12 19:40 | RAD ---
SINGLE VIEW OF THE CHEST: 10/12/20 COMPARISON: 10/11/20 HISTORY: Chest tube to water seal for pneumothorax. FINDINGS: Single view of the chest shows normal sized cardiomediastinal silhouette. The right sided chest tube is unchanged in position. There may be a tiny right apical pneumothorax seen along the medial aspect of the chest tube. No pleural effusion is seen. IMPRESSION: Stable tiny right apical pneumothorax. POS: EAA
[2020-10-12] MEDS: Senokot S 8.6-50 MG TAB PO SCH (21:24)
[2020-10-12] MEDS: Docusate 100 MG CAP PO SCH (21:24)
[2020-10-12] MEDS: Tamsulosin HCl 0.4 MG CAP PO SCH (21:24)
[2020-10-12] MEDS: Simvastatin 10 MG TAB PO SCH (21:25)
[2020-10-12] MEDS: Heparin 5,000 UNITS/ML VIAL SC SCH (21:25)
[2020-10-13] MEDS: traMADol HCl 50 MG TAB PO SCH ×5 (00:07→21:21)
[2020-10-13] MEDS: Acetaminophen 325 MG TAB PO SCH ×5 (00:09→23:15)
--- NOTE | 2020-10-13 00:26 | PRG ---
DATE OF SERVICE: 10/12/2020 SUBJECTIVE: Patient was seen this evening during rounds. He was lying in bed, resting comfortably and asleep with no signs of acute distress. Nursing reported no acute events. OBJECTIVE: VITAL SIGNS: Temperature 98.4, pulse 89, respirations 16, oxygen saturation 96% on 2 L nasal cannula, blood pressure 122/69. GENERAL: Well-appearing elderly male, sitting up in bed, resting comfortably in asleep with no signs of acute distress. ASSESSMENT: 1. Status post ground level fall. 2. Right-sided pelvic and acetabular fractures. 3. Right olecranon fracture. 4. Right ribs 4 through 7 fractures. 5. Right pneumothorax, status post chest tube placement. 6. Bladder contusion. 7. Acute kidney injury, resolved. 8. History of hypertension. PLAN: Continue current diet and pain regimen. Continue physical and occupational therapy. The patient received Lasix 40 today. We will follow up diuresis in the morning and possibly discontinue Stoddard at that time. Repeat chest x-ray in the morning and possibly discontinue that as well. Continue aggressive pulmonary hygiene. The patient is pending discharge to acute rehab facility. Job ID: [id number]
[2020-10-13 06:33] LABS: #Eosinphils 0.2 thou/uL (0.0-0.7); #Lymphocytes 1.5 thou/uL (1.20-3.40); #Monocytes 0.9 thou/uL (0.11-0.59); #Neutrophils 6.1 thou/uL (1.40-6.50); %Basophils 0.3 % (0.0-1.0); %Eosinophils 1.8 % (0.0-10.0); %Monocytes 10.5 % (0.0-10.0); %Neutrophils 70.4 % (42.0-75.0); Hemoglobin 8.4 g/dL (14.0-18.0); Mean Corpuscular HGB CONC 33.6 g/dL (32.0-36.0); Mean Corpuscular Volume 89.3 fL (78.0-98.0); Mean Platelet Volume 7.2 fL (7.4-10.4); Platelet Count 163 thou/uL (130-400); RBC Distribution Width 12.1 % (11.5-14.5); Red Blood Cell (RBC) Count 2.81 mill/uL (4.70-6.10); White Blood Cell (WBC) Count 8.7 thou/uL (4.8-10.8)
[2020-10-13 06:49] LABS: Anion Gap 12 mmol/L (10-20); BUN (Urea Nitrogen) 18 mg/dL (8.4-25.7); Calc. Creatinine Clearance 175 mL/min (70-130); Carbon Dioxide 28 mmol/L (23-31); Chloride 102 mmol/L (98-107); Glucose 110 mg/dL (80-115); Magnesium 2.1 mg/dL (1.6-2.6); Phosphorus 2.4 mg/dL (2.3-4.7); Potassium 3.3 mmol/L (3.5-5.1); Sodium 139 mmol/L (136-145)
[2020-10-13] MEDS ORDERED: Potassium Phosphate 30 MMOL in Sodium Chloride 0.9% 250 ML 250 ML IVPB SCH (09:15)
[2020-10-13] MEDS: Ascorbic Acid 500 mg Chewable Tablet PO SCH (09:21)
[2020-10-13] MEDS: Docusate 100 MG CAP PO SCH ×2 (09:22→21:11)
[2020-10-13] MEDS: Gabapentin 100 MG CAP PO SCH ×3 (09:22→21:12)
[2020-10-13] MEDS: Cholecalciferol 1,000 UNITS (25 MCG) TAB PO SCH (09:24)
[2020-10-13] MEDS: Metoprolol Tartrate 25 MG TAB PO SCH (09:24)
[2020-10-13] MEDS: Senokot S 8.6-50 MG TAB PO SCH ×2 (09:24→21:11)
[2020-10-13] MEDS: Zinc Sulfate 220 MG CAP PO SCH (09:24)
[2020-10-13] MEDS: Multivitamin W/ Minerals 1 TAB PO SCH (09:24)
[2020-10-13] MEDS: Amlodipine 10 MG TAB PO SCH (09:24)
[2020-10-13] MEDS: Heparin 5,000 UNITS/ML VIAL SC SCH ×3 (09:26→21:13)
--- NOTE | 2020-10-13 10:13 | RAD ---
PORTABLE CHEST 1 VIEW: DATE: 10/13/2020. TIME: 9:17 AM. HISTORY: Chest tube, assess for pneumothorax. COMPARISON: Previous day. FINDINGS: Right-sided chest tube remains in place with a probable tiny right apical pneumothorax. The heart si ze is stable. The left lung is clear. IMPRESSION: Stable tiny right apical pneumothorax. POS: OFF
[2020-10-13] MEDS: Ondansetron PF 4 MG/2 ML Vial IVP PRN (11:53)
--- NOTE | 2020-10-13 13:22 | PDOC.GSPN ---
Surgery Progress Note: Subj - Subjective Patient reports: had a bowel movement, feels better, positive flatus, pain well controlled, tolerating liquids well, nausea, tolerating a regular diet Narrative: This is a 65 year old male status post fall on the ice where he sustained multiple right rib fractures with pneumothorax, right elbow and right hip fractures. He is now day 3 status post ORIF of his elbow and hip. Today he states he is feeling well and is overall pleased with his progress. He had a bowel movement this morning at 4am and has had a lot of flatus. He did complain of mild nausea and increased pain when he sat in a chair with PT today. In the room currently, however, he says he is doing well with the pain regimen. After successful diuresis with lasix yesterday his kruger catheter was removed this morning. After discontinuing O2 yesterday his sats dropped to 89 on RA so he was put back on 2 L by nasal cannula. In the room he is saturating in the upper 90s on RA so we discontinued the 2L. He has been using the incentive spirometer and was able to get up to 2000. His CXR this morning was read as stable so his chest tube will be removed this afternoon. He denies any other new complaints. Surgery Progress Note: Obj - Vital signs Vital signs: Vital Signs - Most Recent Temp Pulse Resp BP Pulse Ox 97.7 F 98 14 102/69 94 L 10/13/20 11:55 10/13/20 11:55 10/13/20 11:55 10/13/20 11:55 10/13/20 11:55 - Physical Exam General: no distress, well nourished Cardiovascular: regular rate and rhythm Respiratory: clear to auscultation, breath sounds present, other (Diminished breath sounds still in right lower lobe, but improved since yesterday) Abdomen: soft, non tender Wound: dressing clean,dry,intact Additional exam: GCS 15 Surgery Progress Note: Results - Labs Result Diagrams: 10/14/20 05:21 10/14/20 05:21 Lab results: Laboratory Results - last 12 hr 10/13/20 10/13/20 06:28 06:28 WBC 8.7 RBC 2.81 L Hgb 8.4 L Hct 25.1 L MCV 89.3 MCH 30.0 MCHC 33.6 RDW 12.1 Plt Count 163 MPV 7.2 L Neutrophils % 70.4 Lymphocytes % 17.0 L Monocytes % 10.5 H Eosinophils % 1.8 Basophils % 0.3 Neutrophils # 6.1 Lymphocytes # 1.5 Monocytes # 0.9 H Eosinophils # 0.2 Basophils # 0.0 Sodium 139 Potassium 3.3 L Chloride 102 Carbon Dioxide 28 Anion Gap 12 BUN 18 Creatinine 0.71 Estimated GFR (MDRD) Greater than 90 Glucose 110 Calcium 8.0 Phosphorus 2.4 Magnesium 2.1 Surgery Progress Note: A/P - Plan Plan: Assessment: 1. Ground level fall on ice 2. Displaced olecranon fracture status post ORIF 3. Acute displaced acetabular fracture status post ORIF 4. Bladder contusion with clear urine 5. Right pneumothorax 6. Right rib fractures 5-7 7. SAMANTHA v CKD 8. History HTN Plan 1. Chest tube was removed this afternoon 2. Continue with PT and OT 3. Continue with current pain regimen 4. Goal is for placement in [facility] as soon as bed is made available Addendum - Attending - Attending Attestation Date/Time: 10/14/20 9185 I personally evaluated the patient and discussed the management with Dr. [] I agree with the History, Examination, Assessment and Plan documented above with any addition or exceptions noted below.
[2020-10-13] MEDS: Tamsulosin HCl 0.4 MG CAP PO SCH (21:12)
[2020-10-13] MEDS: Simvastatin 10 MG TAB PO SCH (21:39)
[2020-10-14 05:38] LABS: Hemoglobin 7.9 g/dL (14.0-18.0); Mean Corpuscular HGB CONC 33.9 g/dL (32.0-36.0); Mean Corpuscular Volume 88.6 fL (78.0-98.0); Mean Platelet Volume 6.6 fL (7.4-10.4); Platelet Count 209 thou/uL (130-400); Red Blood Cell (RBC) Count 2.64 mill/uL (4.70-6.10); White Blood Cell (WBC) Count 7.1 thou/uL (4.8-10.8)
[2020-10-14 06:00] LABS: Anion Gap 9 mmol/L (10-20); BUN (Urea Nitrogen) 14 mg/dL (8.4-25.7); Calc. Creatinine Clearance 175 mL/min (70-130); Carbon Dioxide 34 mmol/L (23-31); Chloride 101 mmol/L (98-107); Glucose 104 mg/dL (80-115); Magnesium 2.2 mg/dL (1.6-2.6); Potassium 3.9 mmol/L (3.5-5.1); Sodium 140 mmol/L (136-145)
[2020-10-14] MEDS: Acetaminophen 325 MG TAB PO SCH ×3 (06:31→17:39)
[2020-10-14] MEDS: traMADol HCl 50 MG TAB PO SCH ×3 (06:32→17:40)
[2020-10-14] MEDS: Senokot S 8.6-50 MG TAB PO SCH ×2 (08:25→20:12)
[2020-10-14] MEDS: Zinc Sulfate 220 MG CAP PO SCH (08:26)
[2020-10-14] MEDS: Ascorbic Acid 500 mg Chewable Tablet PO SCH (08:26)
[2020-10-14] MEDS: Cholecalciferol 1,000 UNITS (25 MCG) TAB PO SCH (08:26)
[2020-10-14] MEDS: Ferrous Sulfate 325 MG TAB PO SCH ×2 (08:27→16:04)
[2020-10-14] MEDS: Metoprolol Tartrate 25 MG TAB PO SCH (08:27)
[2020-10-14] MEDS: Docusate 100 MG CAP PO SCH ×2 (08:27→20:12)
[2020-10-14] MEDS: Gabapentin 100 MG CAP PO SCH ×3 (08:28→20:05)
[2020-10-14] MEDS: Heparin 5,000 UNITS/ML VIAL SC SCH ×3 (08:28→20:05)
[2020-10-14] MEDS: Amlodipine 10 MG TAB PO SCH (08:28)
[2020-10-14] MEDS: Multivitamin W/ Minerals 1 TAB PO SCH (08:28)
--- NOTE | 2020-10-14 08:28 | RAD ---
EXAM: Chest one view: HISTORY: Chest tube removed, trauma COMPARISON: 10/13/2020 FINDINGS: Previously noted right chest tube is been removed. Multiple right sided rib fractures. Slight right costophrenic angle blunting Heart size: Within normal limits. Lungs: Clear of acute process. No evidence for confluent lobar pneumonia, significant pleural effusion, acute edema, or pneumothorax , or other significant acute process. IMPRESSION: No significant pneumothorax following right chest tube removal. Right rib fractures. Minimal pleural changes right base.
--- NOTE | 2020-10-14 08:38 | PRG ---
DATE OF SERVICE: 10/14/2020 SUBJECTIVE: Dale is a 65-year-old male, postop day #4 from open reduction and internal fixation of the right hemipelvis and right olecranon. He is comfortable. His pain is slowly improving, but he had exacerbation of pain yesterday with physical therapy specifically exiting the bed off the operative side. Otherwise, he is more comfortable now. OBJECTIVE: VITAL SIGNS: Temperature 98.4, pulse 96, respiratory rate 16, and blood pressure is 127/80. GENERAL: He is alert and oriented to person, place, time, and situation. Responsive and appropriate with examiner. EXTREMITIES: His incision is clean. No strike through. No erythema. Right elbow splint is intact. LABORATORY DATA: Hemoglobin and hematocrit of 7.9 and 23.4. IMPRESSION: 1. A 65-year-old male postop day #4 right hemipelvis open reduction and internal fixation and right elbow olecranon. 2. Postoperative anemia. PLAN: Continue current care. Recheck tomorrow. Job ID: [id number]
[2020-10-14] MEDS: traMADol HCl 50 MG TAB PO PRN (11:05)
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
--- NOTE | 2020-10-14 15:28 | PDOC.GSPN ---
Surgery Progress Note: Subj - Subjective Patient reports: no new complaints, had a bowel movement (1), tolerating liquids well (drinking a lot), voiding w/o difficulty, still having pain (3/10 ribs, 4/10 chest tube removal site, 3/10 when breathing), tolerating a regular diet (patient has low appetite, ate 1/4 of lunch) Narrative: Patient is a 65 year old male post-op for multiple rib fractures, right elbow fracture, right hip fracture, and pneumothorax after a ground level fall. Patient says he is still having some 3/10 pain in his ribs, 4/10 pain at his chest tube removal site, and 3/10 pain when breathing. Patient has reduced appetite and did not finish his lunch. Patient reports drinking a lot of fluids. Patient had 1 bowel movement and no difficulty urinating. Patient is eager to talk with his case workers and with [facility]. Surgery Progress Note: Obj - Vital signs Vital signs: Vital Signs - Most Recent Temp Pulse Resp BP Pulse Ox 98.4 F 92 16 134/82 94 L 10/14/20 11:37 10/14/20 11:37 10/14/20 11:37 10/14/20 11:37 10/14/20 11:37 - Physical Exam General: no distress Cardiovascular: regular rate and rhythm (slightly fast heart rate) Respiratory: clear to auscultation Wound: dressing clean,dry,intact Additional exam: GCS 15 Surgery Progress Note: Results - Labs Result Diagrams: 10/14/20 05:21 10/14/20 05:21 Lab results: Laboratory Results - last 12 hr 10/14/20 10/14/20 05:21 05:21 WBC 7.1 RBC 2.64 L Hgb 7.9 L Hct 23.4 L MCV 88.6 MCH 30.0 MCHC 33.9 RDW 12.0 Plt Count 209 MPV 6.6 L Sodium 140 Potassium 3.9 Chloride 101 Carbon Dioxide 34 H Anion Gap 9 L BUN 14 Creatinine 0.71 Estimated GFR (MDRD) Greater than 90 Glucose 104 Calcium 8.0 Phosphorus 3.0 Magnesium 2.2 Surgery Progress Note: A/P - Plan Plan: Assessment 1. Ground level fall 2. Multiple rib fractures 3. Right elbow fracture 4. Right hip fracture Plan 1. Continue supportive care and pain management. 2. Plan to work with Case Management to move patient to [facility] or [facility] for rehabilitation. Addendum - Attending - Attending Attestation Date/Time: 10/14/20 5001 I personally evaluated the patient and discussed the management with Dr. [] I agree with the History, Examination, Assessment and Plan documented above with any addition or exceptions noted below.
[2020-10-14] MEDS: Tamsulosin HCl 0.4 MG CAP PO SCH (20:05)
[2020-10-14] MEDS: Simvastatin 10 MG TAB PO SCH (20:19)
[2020-10-15] MEDS: traMADol HCl 50 MG TAB PO SCH ×4 (01:04→17:54)
[2020-10-15] MEDS: Acetaminophen 325 MG TAB PO SCH ×5 (01:05→23:59)
--- NOTE | 2020-10-15 06:09 | CON ---
DATE OF CONSULTATION: 10/14/2020 ADDENDUM: INDICATION FOR CONSULTATION: A 65-year-old patient, who is usually followed by Dr. Keyes in [facility], who was admitted after a fall with fractures and he has a history of diastolic heart failure. At the patient's request, we were asked to see him prior to him being transferred to rehab. History of present illness, past medical history, social history, family history, review of systems, allergies, medications, and exam, please refer the notes dictated by the resident, Dr. Hussein. PRESENT PHYSICAL EXAMINATION: VITAL SIGNS: Stable. HEENT: Unremarkable. CHEST: Clear to auscultation. CARDIOVASCULAR: Regular rate and rhythm with normal S1, S2. There was no S3 or S4. There were no significant murmurs, heaves, thrills, bruits, or rubs noted. ABDOMEN: Obesity with positive bowel sounds. No organomegaly or masses noted. No tenderness noted. EXTREMITIES: No significant clubbing, cyanosis, or edema. Pedal pulses are present. He has a surgical cast on the right arm after the elbow fracture. He also has a surgical dressing over the right hip. NEUROLOGIC: The patient is fully intact. There are no gross focal motor deficits noted. He did stay in the bed, did not ambulate during the examination. SKIN: Warm and dry. LABORATORY DATA: Please refer to the other dictation for the laboratory data. IMPRESSION: 1. History of diastolic dysfunction. He appears to be stable at this time. We will obtain an echocardiogram. He said he has not had an echocardiogram in the last 2 to 2-1/2 years. We will obtain echocardiogram for the degree of his diastolic heart failure, but he appears to be very stable at this time. There is no indication that the patient has any heart failure, but does have diastolic dysfunction per the records. 2. He is status post fall with multiple fractures, which include the iliac crest, the right olecranon fractures, and also the right fifth to seventh ribs. 3. History of hypertension, which is under good control at this time. 4. History of benign prostatic hypertrophy. He is stable on medications. 5. Renal insufficiency. I believe this may be chronic, but we will need to repeat his creatinine to see whether or not this remains stable, but it is obviously not a significant abnormality at this time. On admission, his creatinine is 1.42. We will be more than happy to continue to see the patient if need be, but at this time, we will sign off, the patient is very stable and he is obviously stable for transfer to rehab and will follow with Dr. Keyes once he leaves rehab. If any further abnormalities are seen on the echocardiogram, then further recommendations will follow. At this time, we will sign off. I would agree with the present management and the patient is stable from a cardiac standpoint. Job ID: [id number] [facility]OSPITALCassie
[2020-10-15] MEDS: Multivitamin W/ Minerals 1 TAB PO SCH (08:24)
[2020-10-15] MEDS: Cholecalciferol 1,000 UNITS (25 MCG) TAB PO SCH (08:24)
[2020-10-15] MEDS: Ascorbic Acid 500 mg Chewable Tablet PO SCH (08:25)
[2020-10-15] MEDS: Senokot S 8.6-50 MG TAB PO SCH ×2 (08:25→20:14)
[2020-10-15] MEDS: Zinc Sulfate 220 MG CAP PO SCH (08:25)
[2020-10-15] MEDS: Amlodipine 10 MG TAB PO SCH (08:26)
[2020-10-15] MEDS: Ferrous Sulfate 325 MG TAB PO SCH ×2 (08:26→16:08)
[2020-10-15] MEDS: Gabapentin 100 MG CAP PO SCH ×3 (08:26→20:14)
[2020-10-15] MEDS: Metoprolol Tartrate 25 MG TAB PO SCH (08:27)
[2020-10-15] MEDS: Docusate 100 MG CAP PO SCH ×2 (08:27→20:13)
[2020-10-15] MEDS: Heparin 5,000 UNITS/ML VIAL SC SCH ×3 (08:27→20:18)
--- NOTE | 2020-10-15 18:48 | PRG ---
DATE OF SERVICE: 10/15/2020 SUBJECTIVE: The patient was seen during morning rounds. Awake, alert, sitting up in bed. The patient reports that he has had a poor appetite. He is drinking Ensure. He is currently receiving them b.i.d. Otherwise, the patient's pain is well controlled. OBJECTIVE: VITAL SIGNS: Temperature 98.5, pulse 96, respirations 14, SpO2 of 94% on room air, blood pressure 133/79. GENERAL: Well-appearing elderly male, awake, alert, in no distress. HEENT: Unremarkable. RESPIRATORY: Good inspiratory and expiratory effort. No distress. CARDIOVASCULAR: Regular rate, regular rhythm. ABDOMEN: Distended, soft. EXTREMITIES: Right upper extremity in sling, neurovascularly intact x4. NEUROLOGIC: No focal deficits. SKIN: Warm, dry, normal color. ASSESSMENT: 1. Status post ground level fall. 2. Pelvic fractures, postop day #5. 3. Right olecranon fracture, postop day #5. 4. Right rib fractures, 5 through 7. 5. Bladder contusion, stable. 6. Right pneumothorax, stable. 7. History of hypertension. PLAN: Continue supportive care and pain regimen. Have the patient up in the chair as much as tolerated during the day. PT/OT. Increase Ensure to three times a day with meals. Continue aggressive pulmonary toilet. The patient has been approved to [facility] pending bed availability. The plan was discussed with the patient, who agrees. The plan was discussed with the attending, who agrees. Job ID: [id number]
[2020-10-15] MEDS: Tamsulosin HCl 0.4 MG CAP PO SCH (20:14)
[2020-10-15] MEDS: Simvastatin 10 MG TAB PO SCH (20:14)
[2020-10-16] MEDS: traMADol HCl 50 MG TAB PO SCH ×4 (00:02→17:18)
[2020-10-16] MEDS: Acetaminophen 325 MG TAB PO SCH ×3 (05:05→17:18)
[2020-10-16] MEDS: Senokot S 8.6-50 MG TAB PO SCH ×2 (08:43→21:00)
[2020-10-16] MEDS: Multivitamin W/ Minerals 1 TAB PO SCH (08:43)
[2020-10-16] MEDS: Zinc Sulfate 220 MG CAP PO SCH (08:44)
[2020-10-16] MEDS: Metoprolol Tartrate 25 MG TAB PO SCH (08:44)
[2020-10-16] MEDS: Docusate 100 MG CAP PO SCH ×2 (08:44→21:00)
[2020-10-16] MEDS: Ascorbic Acid 500 mg Chewable Tablet PO SCH (08:44)
[2020-10-16] MEDS: Gabapentin 100 MG CAP PO SCH ×3 (08:45→20:59)
[2020-10-16] MEDS: Amlodipine 10 MG TAB PO SCH (08:45)
[2020-10-16] MEDS: Heparin 5,000 UNITS/ML VIAL SC SCH ×3 (08:45→21:00)
[2020-10-16] MEDS: Ferrous Sulfate 325 MG TAB PO SCH ×2 (08:45→17:17)
[2020-10-16] MEDS: Cholecalciferol 1,000 UNITS (25 MCG) TAB PO SCH (08:45)
--- NOTE | 2020-10-16 14:49 | PRG ---
DATE OF SERVICE: 10/16/2020 SUBJECTIVE: Mr. Roberts is a 65-year-old male, recovering well, on surgical floor, not on nasal cannula anymore, resting comfortably in bed. The patient is working actively with PT, OT. The patient is tolerating liquid diet. Pain is well controlled. The patient has not had a bowel movement for 2 days, adjust bowel regimen. OBJECTIVE: VITAL SIGNS: Temperature 98.3, pulse 99, respiratory rate 16, O2 saturation 94% on room air, blood pressure 127/78. GENERAL: Obese gentleman, resting comfortably in bed, no distress. CARDIOVASCULAR: Regular sinus rhythm. PULMONARY: Speaking full sentences. Equal breath sounds bilaterally. No acute distress. ABDOMEN: Protuberant, nontender to palpation. Incision scar, right lower quadrant. No strikethrough through the bandage. LOWER EXTREMITIES: Neurovascularly intact bilaterally. SKIN: Warm and dry. NEUROLOGIC: GCS 15. A and O x4. ASSESSMENT: 1. Status post ground level fall. 2. Pelvic fracture, postop day #6. 3. Right olecranon fracture, postop day #6. 4. Right rib fractures 5 through 7. 5. Bladder contusion, stable. 6. Right pneumothorax, stable. 7. Hypertension, congestive heart failure, controlled. PLAN: Continue supportive care and pain regimen. The patient will continue regular diet. PT, OT 3 times a day. Continue aggressive pulmonary toilet. The patient accepted to [facility], pending bed. The patient is discussed on morning rounds. Job ID: [id number]
[2020-10-16] MEDS: Tamsulosin HCl 0.4 MG CAP PO SCH (20:59)
[2020-10-17] MEDS: traMADol HCl 50 MG TAB PO SCH ×4 (00:19→17:36)
[2020-10-17] MEDS: Acetaminophen 325 MG TAB PO SCH ×4 (00:20→17:34)
[2020-10-17] MEDS: Simvastatin 10 MG TAB PO SCH (00:21)
[2020-10-17] MEDS: Ascorbic Acid 500 mg Chewable Tablet PO SCH (09:25)
[2020-10-17] MEDS: Senokot S 8.6-50 MG TAB PO SCH ×2 (09:25→20:45)
[2020-10-17] MEDS: Zinc Sulfate 220 MG CAP PO SCH (09:26)
[2020-10-17] MEDS: Gabapentin 100 MG CAP PO SCH ×3 (09:26→20:45)
[2020-10-17] MEDS: Amlodipine 10 MG TAB PO SCH (09:27)
[2020-10-17] MEDS: Docusate 100 MG CAP PO SCH ×2 (09:27→20:45)
[2020-10-17] MEDS: Cholecalciferol 1,000 UNITS (25 MCG) TAB PO SCH (09:27)
[2020-10-17] MEDS: Multivitamin W/ Minerals 1 TAB PO SCH (09:27)
[2020-10-17] MEDS: Heparin 5,000 UNITS/ML VIAL SC SCH ×3 (09:28→20:46)
[2020-10-17] MEDS: Ferrous Sulfate 325 MG TAB PO SCH ×2 (09:28→17:34)
[2020-10-17] MEDS: Metoprolol Tartrate 25 MG TAB PO SCH (09:28)
--- NOTE | 2020-10-17 18:13 | PRG ---
DATE OF SERVICE: 10/17/2020 SUBJECTIVE: Mr. Roberts is a 65-year-old male patient, recovering well, on surgical floor. The patient is working actively with PT, OT, awaiting placement at [facility]. Patient's pain is well controlled. Tolerating regular diet, having bowel movements daily. Dispo [facility] when bed is available . OBJECTIVE: VITAL SIGNS: Temperature 98.3, pulse 82, respiratory rate 16, O2 saturation 96% on room air, and blood pressure 111/72. GENERAL: Obese male, resting comfortably in no distress. PULMONARY: Speaking full sentences. Equal breath sounds bilaterally. No acute distress. EXTREMITIES: Lower extremities neurovascularly intact, moving all extremities. SKIN: Warm to touch. NEUROLOGIC: GCS 15. ASSESSMENT: 1. Status post ground level fall. 2. Pelvic fracture, postop day #7. 3. Right olecranon fracture, postop day #7. 4. Right rib fractures 5 through 7. Pain controlled, resolved. 5. Bladder contusion, stable. 6. Right pneumothorax, resolved. 7. Hypertension and congestive heart failure, controlled. PLAN: Echo was done yesterday for Cardiology, diastolic echocardiogram shows an EF of 60% to 65%. The patient will follow outpatient with Dr. Musa. Continue PT, OT, pain control and bowel regimen. Encourage pulmonary toilet, incentive spirometry. GI prophylaxis. Job ID: [id number] MTDD
[2020-10-17] MEDS ORDERED: Ondansetron ODT 4 MG TAB PO PRN (20:45)
[2020-10-17] MEDS: Tamsulosin HCl 0.4 MG CAP PO SCH (20:46)
[2020-10-17] MEDS: traMADol HCl 50 MG TAB PO PRN (20:46)
[2020-10-17] MEDS ORDERED: Simvastatin 5 MG TAB PO SCH (21:00)
[2020-10-18] MEDS: Acetaminophen 325 MG TAB PO SCH ×3 (00:02→12:26)
[2020-10-18] MEDS: traMADol HCl 50 MG TAB PO SCH ×3 (00:02→12:27)
[2020-10-18] MEDS: Ascorbic Acid 500 mg Chewable Tablet PO SCH (09:00)
[2020-10-18] MEDS: Ferrous Sulfate 325 MG TAB PO SCH (09:01)
[2020-10-18] MEDS: Cholecalciferol 1,000 UNITS (25 MCG) TAB PO SCH (09:01)
[2020-10-18] MEDS: Docusate 100 MG CAP PO SCH (09:02)
[2020-10-18] MEDS: Senokot S 8.6-50 MG TAB PO SCH (09:02)
[2020-10-18] MEDS: Zinc Sulfate 220 MG CAP PO SCH (09:02)
[2020-10-18] MEDS: Gabapentin 100 MG CAP PO SCH ×2 (09:02→15:16)
[2020-10-18] MEDS: Metoprolol Tartrate 25 MG TAB PO SCH (09:03)
[2020-10-18] MEDS: Heparin 5,000 UNITS/ML VIAL SC SCH ×2 (09:03→15:16)
[2020-10-18] MEDS: Multivitamin W/ Minerals 1 TAB PO SCH (09:03)
[2020-10-18] MEDS: Amlodipine 10 MG TAB PO SCH (09:03)
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
[2020-10-18 16:29] VITALS: BP 113/75; TEMP 98.5
== END 2020-10-18 17:14 | DRG 958 ==
LOC: ERS 23:58 → SJJU 10-09 02:05 → OBSVTOIN 10-10 16:46
PROVIDERS: ADMIT Specialist; ATTEND Specialist
PROC: 0W9930Z Drainage of Right Pleural Cavity with Drainage Device, Percutaneous Approach (ICD-10-PCS; principal; 2020-10-09)
PROC: 0PSK04Z Reposition Right Ulna with Internal Fixation Device, Open Approach (ICD-10-PCS; 2020-10-10)
PROC: 0QS404Z Reposition Right Acetabulum with Internal Fixation Device, Open Approach (ICD-10-PCS; 2020-10-10)
DX: S32.401A Unspecified fracture of right acetabulum, initial encounter for closed fracture (principal); S27.0XXA Traumatic pneumothorax, initial encounter; S22.41XA Multiple fractures of ribs, right side, initial encounter for closed fracture; N17.9 Acute kidney failure, unspecified; S37.22XA Contusion of bladder, initial encounter; I50.32 Chronic diastolic (congestive) heart failure; S52.021A Displaced fracture of olecranon process without intraarticular extension of right ulna, initial encounter for closed fracture; W00.0XXA Fall on same level due to ice and snow, initial encounter; S32.301A Unspecified fracture of right ilium, initial encounter for closed fracture; Z20.822 Contact with and (suspected) exposure to COVID-19; I11.0 Hypertensive heart disease with heart failure; N40.0 Benign prostatic hyperplasia without lower urinary tract symptoms; D72.829 Elevated white blood cell count, unspecified; E78.00 Pure hypercholesterolemia, unspecified; E66.9 Obesity, unspecified; Z79.899 Other long term (current) drug therapy; Z68.33 Body mass index [BMI] 33.0-33.9, adult; Z79.82 Long term (current) use of aspirin
CPT/HCPCS: 29105; 36415; 51702; 71045; 71046; 71250; 72192; 74177; 76000; 80048; 80053; 81001; 83735; 84100; 85025; 85027; 85610; 85730; 86850; 86900; 86901; 87635; 93005; 93010; 93306; 96374; 96375; 96376; C1713; G0378; G0390; J0690; J1644; J1885; J1940; J2001; J2060; J2250; J2270; J2370; J2405; J2704; J3010; J7050; P9045; Q0162; Q9967; S0028; U0003; U0005